=== PATIENT | female | born 1930 | race African-American/Black ===

== ENCOUNTER 2019-02-22 22:11 | Inpatient (IN) | payer OTHER ==
[~2019-02-22] VITALS: Ht 160 cm; Wt 44.3 kg
[2019-02-22 22:12] VITALS: BP 116/52
[2019-02-22 22:56] LABS: ANION GAP 7 mmol/L (7-16); BUN 42 mg/dL (7-18); CHLORIDE 109 mmol/L (98-107); CO2 27 mmol/L (21-32); CREATININE 2.9 mg/dL (0.6-1.0); GLUCOSE 130 mg/dL (74-106); POTASSIUM 3.7 mmol/L (3.5-5.1); SODIUM 143 mmol/L (136-145)
[2019-02-22 23:06] LABS: TROPONIN-I <0.06 ng/mL (<0.06)
[2019-02-22 23:07] LABS: BASOPHILS 0.4 % (0.0-2.0); EOSINOPHILS 0.1 % (0.0-3.0); HEMATOCRIT 30.9 % (37.0-47.0); HEMOGLOBIN 10.3 gm/dL (12.0-15.0); LYMPHOCYTES 4.9 % (24.0-44.0); MCH 27.3 pg (26.0-34.0); MCHC 33.2 g/dL (28.0-37.0); MCV 82.1 fL (80.0-100.0); MONOCYTES 8.5 % (1.0-8.0); PLATELET COUNT 147 thou/uL (150-400); POLYS 86.1 % (36.0-66.0); RBC 3.76 mil/uL (4.20-5.00); RDW 13.4 % (10.5-14.5); WBC 10.4 thou/uL (4.0-11.0)
[2019-02-23 00:02] LABS: URINE BILIRUBIN NEGATIVE (Negative); URINE BLOOD 2+ (Negative); URINE CLARITY CLOUDY; URINE COLOR YELLOW; URINE GLUCOSE-RANDOM* NEGATIVE (Negative); URINE KETONES NEGATIVE (Negative); URINE LEUKOCYTES 2+ (Negative); URINE NITRITE NEGATIVE (Negative); URINE PROTEIN (DIPSTICK) 2+ (Negative); URINE SPECIFIC GRAVITY 1.025 (1.005-1.035); URINE UROBILINOGEN 0.2 E.U./dl (0.2-1.0)
[2019-02-23 00:14] LABS: CASTS None Seen /LPF (None Seen); MUCUS 0-3 Light strn/LPF (None Seen); SQUAMOUS >10 Many /LPF (0-3); URINE RBC >20 Many /HPF (0-2); URINE WBC >25 Many /HPF (0-5)
[2019-02-23 00:15] LABS: BACTERIA >30 Many /HPF (None Seen); CRYSTALS None Seen /LPF (None Seen); TRANSITIONAL EPITHEL CELL 0-3 Few /LPF (None Seen); WBC CLUMPS Many (None Seen)
[2019-02-23] MEDS ORDERED: CARVEDILOL12.5 MG PO (02:29)
[2019-02-23] MEDS ORDERED: CLONIDINE0.1 PO (02:30)
[2019-02-23] MEDS ORDERED: GLIMEPIRIDE1 MG PO (02:30)
[2019-02-23] MEDS ORDERED: HYDRALAZINE 2525 MG PO (02:31)
[2019-02-23] MEDS ORDERED: IRBESARTAN150 MG PO (02:32)
[2019-02-23] MEDS ORDERED: LAMICTAL100 MG PO (02:32)
[2019-02-23] MEDS ORDERED: REMERON15 MG PO ×2 (02:33→02:34)
[2019-02-23] MEDS ORDERED: PREDNISONE 1 MG1 M1 PO (02:34)
[2019-02-23] MEDS ORDERED: DEMADEX20 MG PO (02:35)
[2019-02-23] MEDS ORDERED: TYLENOL325 MG PO (02:35)
[2019-02-23] MEDS ORDERED: VITAMIN B-12500 MCG PO (02:36)
[2019-02-23 14:38] VITALS: BP 91/43
[2019-02-23 16:00] VITALS: BP 128/61
--- NOTE | 2019-02-23 16:53 | EKG ---
[place] [address] [facility] [place] [address] ELECTROCARDIOGRAM REPORT Name: BERHANE HALL Room #: 418-P ADM IN M.R.#: [id number] ������������������ Admission: 02/23/19 ������������������ Attend Phys: Saul Escoto DO Discharge: ������������������ Date of : [birth year] Report #: [id number] ����������������������������������������������������������������� [id number] THIS REPORT FOR: //name// [facility] ED Test Date: 2019-02-22 Test Time: 23:35:28 Pat Name: BERHANE HALL Department: Room: 418 Gender: F Emergency Vehicle Driver: makayla : 1930 Requested By: Azul Crowder Order Number: [id number] MD: Antonie Oviedo Measurements Intervals [place] Rate: 84 P: 67 MO: 178 QRS: -1 QRSD: 75 T: 108 QT: 363 QTc: 430 Interpretive Statements Sinus rhythm Nonspecific T abnormalities No previous ECG available for comparison Electronically Signed On 02-23-2019 16:53:09 CDT by Antoine Oviedo [email or web address] ��������������������������������������������� <ELECTRONICALLY SIGNED> ���������������������������������������� By: Antoine Oviedo MD, [facility] ��������������������������������������������� 02/23/19 [id number] Antoine Oviedo MD, FACC /EPI
--- NOTE | 2019-02-23 18:00 | NUR ---
ASSUMED CARE AT 1600, SHIFT ASSESSMNET AND ADMISSION DONE. PATIENT COMBATIVE, IMPULSIVE, TRYING TO HIT THE STAFF, TRYING TO CLIMB OUT OF THE BED, UNABLE TO BE REDIRECTED. DR RODRIGUEZ CALLED AND INFORMED ABOUT THE SITUATION, RECEIVED ONE TIME ORDER FOR LAMICTAL 100MG. AT THIS TIME AT 1800, PATIENT HAS BEEN SLEEPING SOUNDLY IN BED, MEDICATION NOT GIVEN AT THIS POINT. WILL ADMINISTER ONCE PATIENT WAKES UP.
[2019-02-23 20:00] VITALS: BP 120/43
--- NOTE | 2019-02-24 04:24 | NUR ---
Per am nurse report, pt has been impulsive and combative. Family at bedside at start of shift. Pt is calmer and follow commands this hs. Incontinent of bowel and bladder. IVF and IV antibiotics infusing. Q2h turn. Fall precautions in place. Will continue to monitor.
[2019-02-24 05:05] VITALS: BP 131/56
--- NOTE | 2019-02-24 10:11 | NUR ---
PT. IS FROM [facility] FAXED CLINICAL UPDATE TO FACILITY LEFT MSG WITH TATY RUBIO. DCP TO FOLLOW.
--- NOTE | 2019-02-24 13:46 | NUR ---
Case opened to follow for dc planning. Chart reviewed and discussed with the care team. Feeder Driver visited with the pt at bedside and her son/jw Saha via phone. The pt is a assisted care resident at [facility]. Likely dc back tomorrow. Pt's son is aware and agreeable. Pt oriented to self only. She can not recall that she no longer lives at home. She walks with a rwalker at the facility. The [facility] liason has been updated. They are holding her bed and can accept her for readmission tomorrow.
[2019-02-24 16:30] VITALS: BP 166/72
--- NOTE | 2019-02-24 18:43 | NUR ---
PT ASSESSED THIS AM. DEVEN MUCH BETTER. IN GOOD SPIRITS. COOPERATIVE W/ CARE. PLAN FOR D/C TOMORROW.
[2019-02-24 19:30] VITALS: BP 185/64
--- NOTE | 2019-02-25 05:05 | NUR ---
ASSESSMENT COMPLETED AT START OF SHIFT.PT CONFUSED AND IMPULSIVE.NEEDES CONSTANT REMINDER TO STAY IN BED.PT HAD LITTLE SLEEP THIS SHIFT.PULLED HER IV ASSESS X1 WAS REPLACED.INCONT OF B&B.PT ABLE TO MOVE SELF IN BED.PT CONT ON IVF ORDERED.FALL PRECAUTIONS IN PLACE.CALL LIGHT WITHIN REACH.
[2019-02-25 05:52] LABS: ALBUMIN 2.5 g/dL (3.4-5.0); CALCIUM 9.8 mg/dL (8.5-10.1); CREATININE 2.4 mg/dL (0.6-1.0); PHOSPHORUS 2.2 mg/dL (2.5-4.9); POTASSIUM 3.6 mmol/L (3.5-5.1)
[2019-02-25 07:55] VITALS: BP 193/141
[2019-02-25 09:34] VITALS: BP 193/141
[2019-02-25] MEDS ORDERED: CLONIDINE HCL0.3 M3 TRANSDERM (10:16)
[2019-02-25] MEDS ORDERED: CEFUROXIME500 MG PO (10:17)
--- NOTE | 2019-02-25 10:36 | NUR ---
Elena gonzáles notified of possible dc today. Dc raw material planner to fax orders and notify the pt's family of dc time. [place] to arrange for w/c van transport. Pt returning to [facility].
--- NOTE | 2019-02-25 10:49 | NUR ---
PT. DISCHARGING TODAY BACK TO [facility] FAXED DC ORDERS/SUMMARY TO FACILITY SPOKE WITH TATY IN ADM. SHE RECEIVED ORDERS AND ARRANGED TRANSPORT VIA VAN FOR 1500 TODAY. LEFT MS WITH PT'S SON (JOVANY) OF DISCHARGE AND TIME OF TRANSPORT. UNIT NOTIFIED AND CHART COPY PER US. RN TO CALL REPORT TO [phone].
--- NOTE | 2019-02-25 11:49 | NUR ---
Assessment completed.vss but elevated bp noted.Scheduled med offered but pt refused.Daughter notified to come and visit pt but she said it's going to be later today.Dr Garcia notified,order noted.Pt will be dc to [facility] between 1230 and 1300.Pt has soft brown stool this morning.Pt has been very combative and unable to follow directions.Will continue to monitor.
== END 2019-02-25 13:28 | DRG 682 ==
LOC: ER 22:11 → EROBS 02-23 00:31 → 4E 02-23 00:31
PROVIDERS: Hospitalist; Student in an Organized Health Care Education/Training Program; ADMIT Internal Medicine Geriatric Medicine
DX: N17.9 Acute kidney failure, unspecified (principal); G92 Toxic encephalopathy; N39.0 Urinary tract infection, site not specified; E46 Unspecified protein-calorie malnutrition; Z68.1 Body mass index [BMI] 19.9 or less, adult; G31.09 Other frontotemporal neurocognitive disorder; F02.80 Dementia in other diseases classified elsewhere, unspecified severity, without behavioral disturbance, psychotic disturbance, mood disturbance, and anxiety; N18.3 Chronic kidney disease, stage 3 (moderate); I12.9 Hypertensive chronic kidney disease with stage 1 through stage 4 chronic kidney disease, or unspecified chronic kidney disease; E78.5 Hyperlipidemia, unspecified; D86.0 Sarcoidosis of lung; M62.84 Sarcopenia; G47.00 Insomnia, unspecified; B96.20 Unspecified Escherichia coli [E. coli] as the cause of diseases classified elsewhere; E86.0 Dehydration; Z86.73 Personal history of transient ischemic attack (TIA), and cerebral infarction without residual deficits; Z88.8 Allergy status to other drugs, medicaments and biological substances; Z90.12 Acquired absence of left breast and nipple
CPT/HCPCS: 10084

== ENCOUNTER 2019-03-16 23:16 | Inpatient (IN) | payer OTHER ==
[~2019-03-16] VITALS: Ht 160 cm; Wt 42.5 kg
[~2019-03-16 23:16] MED LIST: CARVEDILOL12.5 MG PO; CEFUROXIME500 MG PO; CLONIDINE HCL0.3 M3 TRANSDERM; CLONIDINE0.1 PO; DEMADEX20 MG PO; GLIMEPIRIDE1 MG PO; HYDRALAZINE 2525 MG PO; IRBESARTAN150 MG PO; LAMICTAL100 MG PO; PREDNISONE 1 MG1 M1 PO; REMERON15 MG PO; TYLENOL325 MG PO; VITAMIN B-12500 MCG PO
[2019-03-16 23:17] VITALS: BP 191/77
[2019-03-17] VITALS (7 sets, daily range): BP systolic 141–200; BP diastolic 55–85
[2019-03-17 00:07] LABS: URINE BILIRUBIN NEGATIVE (Negative); URINE BLOOD 2+ (Negative); URINE CLARITY CLOUDY; URINE COLOR YELLOW; URINE GLUCOSE-RANDOM* NEGATIVE (Negative); URINE KETONES NEGATIVE (Negative); URINE LEUKOCYTES-REFLEX 2+ (Negative); URINE NITRITE-REFLEX POSITIVE (Negative); URINE PROTEIN (DIPSTICK) 1+ (Negative); URINE UROBILINOGEN 0.2 E.U./dl (0.2-1.0)
[2019-03-17] MEDS ORDERED: CENTRUM SILVER1 EAC4 PO (00:07)
[2019-03-17 00:12] LABS: AMORPHOUS URATES Few /LPF (None Seen); HYALINE CASTS 0-3 Few /LPF (None Seen); MUCUS 0-3 Light strn/LPF (None Seen); SQUAMOUS 4-10 Moderate /LPF (0-3); TRANSITIONAL EPITHEL CELL 0-3 Few /LPF (None Seen); URINE RBC 3-10 Few /HPF (0-2); URINE WBC-REFLEX 6-15 Few /HPF (0-5)
[2019-03-17 00:19] LABS: HEMATOCRIT 28.9 % (37.0-47.0); HEMOGLOBIN 9.3 gm/dL (12.0-15.0); MCH 26.4 pg (26.0-34.0); MCHC 32.1 g/dL (28.0-37.0); MCV 82.2 fL (80.0-100.0); PLATELET COUNT 220 thou/uL (150-400); RBC 3.51 mil/uL (4.20-5.00); RDW 14.2 % (10.5-14.5); WBC 6.5 thou/uL (4.0-11.0)
[2019-03-17 00:20] LABS: ANION GAP 11 mmol/L (7-16); BUN 77 mg/dL (7-18); CALCIUM 10.6 mg/dL (8.5-10.1); CHLORIDE 120 mmol/L (98-107); CO2 23 mmol/L (21-32); CREATININE 3.1 mg/dL (0.6-1.0); GLUCOSE 192 mg/dL (74-106); POTASSIUM 3.9 mmol/L (3.5-5.1); SODIUM 154 mmol/L (136-145)
[2019-03-17 00:30] LABS: ALBUMIN 2.4 g/dL (3.4-5.0); DIRECT BILIRUBIN 0.2 mg/dL (<0.1-0.3); SGOT 60 U/L (15-37); SGPT 54 U/L (30-65); TOTAL BILIRUBIN 0.6 mg/dL (<0.1-1.0); TOTAL PROTEIN 6.6 g/dL (6.4-8.2); TROPONIN-I <0.06 ng/mL (<0.06)
--- NOTE | 2019-03-17 00:48 | NUR ---
called [facility] FOR UPDATED PT RECORD
[2019-03-17 00:52] LABS: ABSOLUTE NEUTROPHILS 3.8 thou/uL (1.4-8.2)
[2019-03-17 00:53] LABS: LARGE PLATELETS FEW; PLATELET ESTIMATE NORMAL
[2019-03-17] MEDS ORDERED: AVAPRO 150 MG150 M1 PO (01:14)
[2019-03-17] MEDS ORDERED: LAMICTAL100 MG PO (01:14)
[2019-03-17] MEDS ORDERED: TYLENOL325 MG PO (01:15)
[2019-03-17] MEDS ORDERED: B12INJ IM (01:15)
[2019-03-17 05:41] LABS: CALCIUM 10.5 mg/dL (8.5-10.1); MAGNESIUM 2.3 mg/dL (1.8-2.4); POTASSIUM 3.9 mmol/L (3.5-5.1)
--- NOTE | 2019-03-17 06:52 | NUR ---
ASSUMED CARE OF PT AT 0245HRS. PT ARRIVED WITH FAMILY. PT IS ALERT AND ORIENTED TO SELF. PT DOES NOT RETAIN EDUCATION DUE TO AMS. FAMILY WAS EDUCATED. PT PLACED ON HIGH FALL RISK PRECAUTION. THE NIGHT PROGRESSED, PT WAS ABLE TO GET COMFORTABLE AND SLEEP. PT WAS NOT AGITATED. HIGH BP WAS TREATED WITH MEDICATION.
[2019-03-17] MEDS ORDERED: CARVEDILOL12.5 MG PO (09:50)
--- NOTE | 2019-03-17 14:33 | NUR ---
PT ADMITTED RELATED TO UTI. CM REVIEWED CHART AND SPOKE WITH CARE TEAM. CM CALLED PT'S SON/DPESRGIO MANZO PT ISN'T ABLE TO COMPLETE ASSESSMENT QUESTIONS. HE INDICATED THAT PT HAD BEEN RESIDENT OVER AT [facility]. HE INDICATED PT HAD BEEN WALKING WITH A FWW UNTIL SHE BECAME WEAK AND HAD RECENTLY BEEN USING A WHEELCHAIR. SON INDICATED HE ANTICPATED PT RETURNING TO [facility] ONCE MEDICALLY STABLE. CM NOTIFIED LIAISON AND CLINICAL UPDATE WAS FAXED. CM TO FOLLOW INDICATED WITH DC PLANNING.
--- NOTE | 2019-03-17 16:48 | NUR ---
ASSUMED CARE 0700. ALERT TO SELF ONLY, DENIES PAIN. VSS. PRN BP MEDICATION AVAILABLE IF SBP>170, NO NEED TO ADMINISTER AT THIS TIME. DECLINED AM MEAL. FAMILY BEDSIDE DURING NOON MEAL AND FED PATIENT. NOTED PATIENT IS POCKETS FOOD AND REQUIRES QUEING TO SWALLOW. NURSE FROM FACILITY SWETHA CALLED FOR UPDATE OF PT STATUS. SWETHA CONFIRMED PT'S BASELINE SAME SHE IS AT PRESENT. PT IS COMBATIVE WITH CARES, DECLINES MEALS AT HER HOME. PT DRINKS INSURE. NORMALLY PT WILL USES WALKER. PT AT PRESENT PRESENTS WITH LEGS CONTRACTED.EPISCOPALIAN CALMS PT. NSR ON TELE THIS SHIFT. TURNS Q2HR TOLERATED. FALL PRECAUTIONS IN PLACE. PT DOES NOT USE CALL LIGHT.
--- NOTE | 2019-03-18 04:07 | NUR ---
PT ALERT BUT ONLY ORIENTED TO SELF. PT SLEPT PART OF THE NIGHT. NO S/S OF ACUTE DISTRESS. PT TURNED EVERY 2-3H. NO OTHER CONCERNS AT THIS TIME. WILL CONTINIE TO MONITOR.
[2019-03-18 04:57] VITALS: BP 150/80
[2019-03-18 07:56] VITALS: BP 192/91
[2019-03-18 08:07] LABS: HEMATOCRIT 28.9 % (37.0-47.0); HEMOGLOBIN 9.5 gm/dL (12.0-15.0); MCHC 32.8 g/dL (28.0-37.0); MCV 82.1 fL (80.0-100.0); RBC 3.52 mil/uL (4.20-5.00); RDW 14.6 % (10.5-14.5)
[2019-03-18 08:26] LABS: CALCIUM 10.6 mg/dL (8.5-10.1); CREATININE 2.7 mg/dL (0.6-1.0); MAGNESIUM 2.4 mg/dL (1.8-2.4)
--- NOTE | 2019-03-18 10:22 | NUR ---
PT A&OX1, IV INTACT IN R FA. NON AMB. AND CONTRACTED. PT IS CONFUSED. PT TOOK MEDS CRUSHED IN APPLESAUCE UNABLE TO FEED SELF HAS POOR APPETITE. WILL CONT POC.
[2019-03-18] MEDS ORDERED: AMARYL2 MG (11:39)
[2019-03-18] MEDS ORDERED: HYDRALAZINE 2525 MG (11:43)
[2019-03-18 13:55] VITALS: BP 132/61
--- NOTE | 2019-03-18 15:37 | NUR ---
ORDER REC'D FOR OT EVAL. PATIENT DID NOT FOLLOW INSTRUCTIONS FOR PARTICIPATION IN OT EVALUATION OR ADLS. PATIENT IS DEPENDENT FOR ADLS AT [facility] AND DOES NOT FEED HERSELF. AT THIS TIME PATIENT IS NOT APPROPRIATE FOR SKILLED OT AND WILL BE DISCHARGED FROM SERVICE AFTER THIS SCREENING.
--- NOTE | 2019-03-18 15:56 | NUR ---
CARE TEAM INDICATED THAT PT MAY BE MEDICALLY STABLE TO DISCHARGE BACK TO [facility] EARLY TOOMORROW. TATY THEIR LIAISON VISITED WITH PT AND HER SPOUSE TODAY. CM TO FOLLOW INDICATED WITH DC PLANNING. CM TO FOLLOW INDICATED WITH DC PLANNING.
[2019-03-18 19:53] VITALS: BP 177/65
--- NOTE | 2019-03-19 01:33 | NUR ---
ASSESSMENT: PT REMAIN ALERT AND ORIENT TO SELF AND FAMILY MEMEBERS. DOES NOT VERBALIZE TIME, PLACE NOR SITUATION. PT'S DAUGHTER WAS AT THE BEDSIDE UNTIL 2129. PT INCONT TO BLADDER, TURNED EVERY 2 HOURS. BLOOD PRESSURE WAS ELEVATED, 177/65, PRN HYDRALAZINE GIVEN. AFEBRILE. DID TAKE CRUSHED MEDS IN APPLE SAUCE FOLLOWED BY SIPS OF WATER TO ENSURE THAT MEDS WERE TAKEN. NEW IV INITATED IN RIGHT UPPER ARM, 22 GUAGE. LEFT UE NOTED WITH LIMB ALERT BAND R/T PAST HX OF BREAST CA AND A MASTECTOMY WAS DONE. DAUGHTER STATES THAT PT IS MORE ALERT AND RESPONSIVE COMPARED TO THE LAST 2 DAYS. PT IS GETTING IV ANTIBX FOR UTI. SLOW PROGRESS, SR PER MONITOR. WILL CONTINUE TO MONITOR.
[2019-03-19 04:12] VITALS: BP 168/44
[2019-03-19 07:40] VITALS: BP 174/75
[2019-03-19] MEDS ORDERED: CEFUROXIME500 MG PO (12:47)
[2019-03-19] MEDS ORDERED: AMLODIPINE BESYL5 M1 PO (12:47)
[2019-03-19 12:56] VITALS: BP 174/75
--- NOTE | 2019-03-19 13:34 | NUR ---
DISCHARGE ORDERS RECEIVED. PATIENT DISCHARGING TO [facility]. CHART COPIED PER GEAR TESTER. ORDERS FAXED TO [facility]IAISON. TRANSPORTATION SET UP THROUGH [place], [id number] HOURS. SON JOVANY NOTIFIED AND AGREEABLE. UNIT NOTIFIED AND CONTACT NUMBER FOR REPORT PROVIDED. UNIT CM/SW AWARE.
--- NOTE | 2019-03-19 16:33 | NUR ---
DISCHARGED TO [facility] VIA WHEELCHAIR VAN. INCONTINT OF URINE MULTIPLE TIMES. REFUSED MEALS. SALINE LOCK FROM LEFT UPPER ARM DISCONTINUED. DENIES PAIN. ORIENTED TO NAME ONLY. CONFUSED AND COMBATIVE AT TIMES.
== END 2019-03-19 17:00 | DRG 871 ==
LOC: ER 23:16 → 4W 03-17 01:39 → EROBS 03-17 01:39 → 4W 03-17 02:31
PROVIDERS: Emergency Medicine; Nurse Practitioner Acute Care; ADMIT Internal Medicine
DX: A41.9 Sepsis, unspecified organism (principal); G92 Toxic encephalopathy; E43 Unspecified severe protein-calorie malnutrition; E87.1 Hypo-osmolality and hyponatremia; N17.9 Acute kidney failure, unspecified; N39.0 Urinary tract infection, site not specified; Z68.1 Body mass index [BMI] 19.9 or less, adult; F02.80 Dementia in other diseases classified elsewhere, unspecified severity, without behavioral disturbance, psychotic disturbance, mood disturbance, and anxiety; G31.09 Other frontotemporal neurocognitive disorder; E78.5 Hyperlipidemia, unspecified; N18.3 Chronic kidney disease, stage 3 (moderate); I12.9 Hypertensive chronic kidney disease with stage 1 through stage 4 chronic kidney disease, or unspecified chronic kidney disease; E11.22 Type 2 diabetes mellitus with diabetic chronic kidney disease; R41.0 Disorientation, unspecified; D63.8 Anemia in other chronic diseases classified elsewhere; D86.0 Sarcoidosis of lung; E53.8 Deficiency of other specified B group vitamins; E86.0 Dehydration; Z90.12 Acquired absence of left breast and nipple; Z90.10 Acquired absence of unspecified breast and nipple; Z88.8 Allergy status to other drugs, medicaments and biological substances; Z86.73 Personal history of transient ischemic attack (TIA), and cerebral infarction without residual deficits
CPT/HCPCS: 10045

== ENCOUNTER 2019-03-25 18:36 | Emergency (ER) | payer OTHER ==
[~2019-03-25] VITALS: Ht 160 cm; Wt 62.1 kg
[~2019-03-25 18:36] MED LIST changes: +AMARYL2 MG; +AMLODIPINE BESYL5 M1 PO; +AVAPRO 150 MG150 M1 PO; +B12INJ IM; +CENTRUM SILVER1 EAC4 PO; +HYDRALAZINE 2525 MG
[2019-03-25 20:15] LABS: BASOPHILS 0.8 % (0.0-2.0); HEMATOCRIT 27.2 % (37.0-47.0); HEMOGLOBIN 8.8 gm/dL (12.0-15.0); LYMPHOCYTES 16.8 % (24.0-44.0); MCH 26.4 pg (26.0-34.0); MCHC 32.2 g/dL (28.0-37.0); MCV 82.1 fL (80.0-100.0); PLATELET COUNT 251 thou/uL (150-400); POLYS 71.4 % (36.0-66.0); RBC 3.31 mil/uL (4.20-5.00); RDW 14.7 % (10.5-14.5); WBC 9.8 thou/uL (4.0-11.0)
[2019-03-25 20:24] LABS: CREATININE 3.8 mg/dL (0.6-1.0); POTASSIUM 4.6 mmol/L (3.5-5.1)
[2019-03-25 20:30] LABS: ALBUMIN 1.9 g/dL (3.4-5.0); TOTAL BILIRUBIN 0.2 mg/dL (<0.1-1.0); TOTAL PROTEIN 6.4 g/dL (6.4-8.2)
--- NOTE | 2019-03-25 20:45 | NUR ---
PT CAME TO ER AFTER FAILED PIV AND PICC INSERTION AT [facility]. PT WAS PREPPED AND DRAPED FOR MAX BARRIER PRECAUTIONS. MATT BASILIC WAS WIDELY PATENT WITH USG,1% LIDOCAINE GIVEN. 4 FR POWER MIDLINE TRIMMED TO 14CM INSERTED TO 0CM. ML SECURED. ALL LABS DRAWN.ML RELEASED FOR IMMEDIATE USE PER PROTOCOL TO JOHN GUNTER. WALLET CARD PLACED ON CHART.
[2019-03-25] MEDS ORDERED: FEVERALL120 MG RECTAL (21:50)
[2019-03-25 22:09] VITALS: BP 154/63
== END 2019-03-25 22:10 | disposition home or self-care (01) ==
LOC: ER 18:36
PROVIDERS: Physician Assistant
DX: E86.0 Dehydration (principal); E87.0 Hyperosmolality and hypernatremia; G31.09 Other frontotemporal neurocognitive disorder; F02.80 Dementia in other diseases classified elsewhere, unspecified severity, without behavioral disturbance, psychotic disturbance, mood disturbance, and anxiety; E78.5 Hyperlipidemia, unspecified; I95.1 Orthostatic hypotension; E11.22 Type 2 diabetes mellitus with diabetic chronic kidney disease; N18.3 Chronic kidney disease, stage 3 (moderate); Z86.2 Personal history of diseases of the blood and blood-forming organs and certain disorders involving the immune mechanism; Z85.3 Personal history of malignant neoplasm of breast; Z88.8 Allergy status to other drugs, medicaments and biological substances; Z88.1 Allergy status to other antibiotic agents; Z90.12 Acquired absence of left breast and nipple
CPT/HCPCS: 27000